=== PATIENT | male | born 1990 | race Caucasian/White ===

== ENCOUNTER 2022-01-02 16:40 | Emergency (ER) | payer OTHER ==
[~2022-01-02] VITALS: Ht 167.6 cm; Wt 84.4 kg
[2022-01-02 16:53] VITALS: BP_SYST 131
--- NOTE | 2022-01-02 17:00 | NUR ---
Pt triaged in tent due to COVID sx; awaiting MD evaluation.
--- NOTE | 2022-01-02 17:10 | NUR ---
Pt alert and oriented upon face to face assessment. Came in from home reporting fever, chills and vomiting. Stated took home COVID test and it was positive. Pending MD jefferson.
--- NOTE | 2022-01-02 17:15 | NUR ---
ER Dr Diggs to tent to assess patient
[2022-01-02] MEDS ORDERED: ONDA-8 TL (17:16)
[2022-01-02] MEDS ORDERED: PHEN-707 PO (17:16)
--- NOTE | 2022-01-02 17:40 | NUR ---
Patient given written and verbal discharge instructions and verbalizes understanding. ER MD discussed with patient the results and treatment provided. Patient in stable condition. ID arm band removed. Rx of Zofran and Cold and Flu Severe given. Patient educated on pain management and to follow up with PMD. Pain scale 0/10. Opportunity for questions provided and answered. Medication side effect fact sheet provided.
== END 2022-01-02 17:40 | disposition home or self-care (01) ==
LOC: SED 16:40
DX: U07.1 COVID-19 (principal); R11.2 Nausea with vomiting, unspecified; R05.9 Cough, unspecified
CPT/HCPCS: 99283